=== PATIENT | male | born 1975 | race Caucasian/White ===

== ENCOUNTER → 2016-12-13 | Outpatient (CLI) | payer OTHER | END | disposition home or self-care (01) | LOC: RAD 10:54 | PROVIDERS: ATTEND Family Medicine | DX: R05 Cough (principal) | CPT/HCPCS: 71020 ==

== ENCOUNTER 2019-03-20 11:08 | Day surgery (SDC) | payer OTHER ==
[~2019-03-20] VITALS: Ht 188 cm; Wt 169.0 kg
[2019-03-20 11:43] VITALS: BP 123/85
[2019-03-20] MEDS ORDERED: LACTATED RINGERS 1,000 ML IV SCH (11:48)
[2019-03-20] MEDS ORDERED: APIX5TAB PO (12:15)
[2019-03-20] MEDS ORDERED: MIDAZOLAM 1 MG/ML, 2ML ONE (12:38)
[2019-03-20] MEDS ORDERED: FENTANYL PF 100 MCG/2ML ONE ×2 (12:38→14:04)
[2019-03-20] MEDS ORDERED: LIDOCAINE 1%-EPI 1:100K, 30ML ONE (12:47)
[2019-03-20] MEDS ORDERED: ROPIvacaine/PF 0.5%, 30 ML ONE (12:47)
[2019-03-20] MEDS ORDERED: hydrALAzine 20 MG/ML, 1ML IV PRN (13:30)
[2019-03-20] MEDS ORDERED: ALBUTEROL SULFATE 2.5 MG/3 ML NPPB PRN (13:30)
[2019-03-20] MEDS ORDERED: MEPERIDINE/PF 25MG/0.5ML IVPush PRN (13:30)
[2019-03-20] MEDS ORDERED: PROMETHAZINE 25 MG/ML, 1ML IV PRN (13:30)
[2019-03-20] MEDS ORDERED: LABETALOL 5MG/ML, 20ML IV PRN (13:30)
[2019-03-20] MEDS ORDERED: FENTANYL PF 100 MCG/2ML IV PRN (13:30)
[2019-03-20] MEDS ORDERED: ACETAMINOPHEN 325 MG TABLET PO PRN (13:30)
[2019-03-20] MEDS ORDERED: HYDROmorphone 2 MG/ML, 1ML IVPush PRN (13:30)
[2019-03-20] MEDS ORDERED: OXYcodone 5 MG/5 ML ORAL.SOL UDC PO PRN (13:30)
[2019-03-20] MEDS ORDERED: DIAZEPAM 5 MG/ML, 2ML IVPush PRN (13:30)
[2019-03-20] MEDS ORDERED: KETOROLAC 30 MG/1 ML IV PRN (13:30)
[2019-03-20] MEDS ORDERED: OXYcodone 5 MG/5 ML ORAL.SOL UDC ONE (14:04)
[2019-03-20] MEDS ORDERED: ACETAMINOPHEN 650 MG/20.3 ML UDC ONE (14:15)
[2019-03-20] MEDS ORDERED: KETOROLAC 30 MG/1 ML ONE (14:15)
[2019-03-20] MEDS ORDERED: PROPOFOL 10 MG/ML, 20ML ONE (14:32)
[2019-03-20] MEDS ORDERED: CEFAZOLIN 1,000 MG ONE (14:32)
[2019-03-20] MEDS ORDERED: DEXAMETHASONE 4 MG/ML, 1ML ONE (14:32)
[2019-03-20] MEDS ORDERED: ONDANSETRON 2MG/ML, 2ML ONE (14:32)
== END 2019-03-20 16:10 | disposition home or self-care (01) ==
LOC: OUT 11:08
PROVIDERS: ATTEND Orthopaedic Surgery
DX: S83.232A Complex tear of medial meniscus, current injury, left knee, initial encounter (principal); S83.282A Other tear of lateral meniscus, current injury, left knee, initial encounter; M94.262 Chondromalacia, left knee; M19.90 Unspecified osteoarthritis, unspecified site; E66.01 Morbid (severe) obesity due to excess calories; Z68.42 Body mass index [BMI] 45.0-49.9, adult; Z79.01 Long term (current) use of anticoagulants; Z86.711 Personal history of pulmonary embolism; Z86.718 Personal history of other venous thrombosis and embolism; Z82.61 Family history of arthritis; X58.XXXA Exposure to other specified factors, initial encounter; Y93.89 Activity, other specified; Y92.89 Other specified places as the place of occurrence of the external cause; Y99.8 Other external cause status
CPT/HCPCS: 29880; J0690; J1100; J1885; J2250; J2405; J2704; J2795; J3010; J3490; J7120